=== PATIENT | male | born 2005 | race Caucasian/White ===

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

== ENCOUNTER 2024-12-12 20:29 | Emergency (ER) | payer OTHER ==
[~2024-12-12] VITALS: Ht 180.3 cm; Wt 66.7 kg
[~2024-12-12 20:29] MED LIST changes: +FAMO20 PO
[2024-12-12 20:37] VITALS: BP 119/82
== END 2024-12-12 22:15 | disposition left against medical advice (07) ==
LOC: ER 20:29
DX: T15.91XA Foreign body on external eye, part unspecified, right eye, initial encounter (principal); Z53.21 Procedure and treatment not carried out due to patient leaving prior to being seen by health care provider